=== PATIENT | female | born 1945 | race Caucasian/White ===

== ENCOUNTER 2021-09-12 19:50 | Emergency (ER) | payer MEDICARE, BC ==
[~2021-09-12] VITALS: Ht 167.6 cm; Wt 83.0 kg
[2021-09-12 20:28] LABS: BASOPHILS % (AUTO) 0.4 % (0.0-5.0); EOSINOPHILS % (AUTO) 1.9 % (0.0-8.0); HEMATOCRIT 39.6 % (36-48); LYMPHOCYTES % (AUTO) 26.9 % (21.0-51.0); MEAN CORPUSCULAR HGB CONC 34.3 g/dL (32.0-36.0); MEAN CORPUSCULAR VOLUME 93.2 fL (79-99); MONOCYTES % (AUTO) 7.4 % (3.0-13.0); NEUTROPHILS % (AUTO) 63.2 % (40.0-77.0); PLATELET COUNT (AUTO) 324 K/uL (130-400); RED BLOOD CELL COUNT(AUTO) 4.25 MIL/uL (4.00-5.50); RED CELL DISTRIBUTION WIDTH 11.5 % (11.0-15.5); WHITE BLOOD COUNT (AUTO) 8.1 K/uL (4.8-10.8)
[2021-09-12] MEDS ORDERED: LORAZEPAM 2 MG/ML 1 ML VIAL IVP SCH (20:30)
[2021-09-12] MEDS ORDERED: LORAZEPAM 2 MG/ML 1 ML VIAL ONE (20:32)
[2021-09-12 20:48] LABS: POTASSIUM 3.8 mmol/L (3.5-5.1)
[2021-09-12 21:18] LABS: ALBUMIN 3.8 g/dL (3.5-5.0); CREATININE 0.5 mg/dL (0.5-1.5)
[2021-09-12 21:38] VITALS: BP 113/85
[2021-09-12] MEDS ORDERED: HYDR25CA PO (22:07)
[2021-09-12] MEDS ORDERED: LORAZEPAM 2 MG/ML 1 ML VIAL IVP ONE (22:30)
== END 2021-09-12 22:25 | disposition home or self-care (01) ==
LOC: EDH 19:50
DX: F41.9 Anxiety disorder, unspecified (principal); G20 Parkinson's disease; Z88.5 Allergy status to narcotic agent; Z79.899 Other long term (current) drug therapy; Z88.6 Allergy status to analgesic agent
CPT/HCPCS: 36415; 71045; 80053; 84484; 85025; 93005; 96374; 96376; 99285; J2060 ×2

== ENCOUNTER 2021-09-15 03:46 | Emergency (ER) | payer MEDICARE ==
[~2021-09-15] VITALS: Ht 167.6 cm; Wt 81.6 kg
[~2021-09-15 03:46] MED LIST: HYDR25CA PO
[2021-09-15 04:05] VITALS: BP 183/92
[2021-09-15] MEDS ORDERED: LORAZEPAM 2 MG/ML 1 ML VIAL ONE (04:16)
[2021-09-15] MEDS ORDERED: LORAZEPAM 2 MG/ML 1 ML VIAL IM ONE (04:30)
[2021-09-16] MEDS ORDERED: CEPH500B PO (15:29)
[2021-09-16] MEDS ORDERED: HYDR-3421 PO (15:29)
== END 2021-09-15 05:00 | disposition home or self-care (01) ==
LOC: EDH 03:46
DX: F41.9 Anxiety disorder, unspecified (principal); R25.9 Unspecified abnormal involuntary movements; Z88.5 Allergy status to narcotic agent; Z85.820 Personal history of malignant melanoma of skin; Z79.899 Other long term (current) drug therapy
CPT/HCPCS: 96372; 99283; J2060

== ENCOUNTER 2021-09-16 13:43 | Emergency (ER) | payer MEDICARE ==
[~2021-09-16] VITALS: Ht 167.6 cm; Wt 81.6 kg
[2021-09-16 14:28] LABS: BASOPHILS % (AUTO) 0.5 % (0.0-5.0); EOSINOPHILS % (AUTO) 2.4 % (0.0-8.0); HEMATOCRIT 37.4 % (36-48); LYMPHOCYTES % (AUTO) 24.8 % (21.0-51.0); MEAN CORPUSCULAR HEMOGLOBIN 32.2 pg (27.0-33.0); MEAN CORPUSCULAR HGB CONC 34.2 g/dL (32.0-36.0); MONOCYTES % (AUTO) 10.8 % (3.0-13.0); PLATELET COUNT (AUTO) 304 K/uL (130-400); RED BLOOD CELL COUNT(AUTO) 3.98 MIL/uL (4.00-5.50); RED CELL DISTRIBUTION WIDTH 11.7 % (11.0-15.5); WHITE BLOOD COUNT (AUTO) 6.3 K/uL (4.8-10.8)
[2021-09-16] MEDS ORDERED: LORAZEPAM 2 MG/ML 1 ML VIAL IVP ONE (14:30)
[2021-09-16] MEDS ORDERED: LORAZEPAM 2 MG/ML 1 ML VIAL ONE (14:35)
[2021-09-16 14:38] LABS: CREATININE 0.6 mg/dL (0.5-1.5); POTASSIUM 3.4 mmol/L (3.5-5.1)
[2021-09-16 14:42] LABS: APPEARANCE,URINE CLOUDY (CLEAR); BILIRUBIN,URINE NEGATIVE (NEGATIVE); COLOR,URINE YELLOW (YELLOW); GLUCOSE, URINE (UA) NEGATIVE (NEGATIVE); KETONES,URINE 15 mg/dL (NEGATIVE); LEUKOCYTE ESTERASE ,URINE LARGE (NEGATIVE); NITRATE,URINE NEGATIVE (NEGATIVE); OCCULT BLOOD,URINE NEGATIVE (NEGATIVE); PH,URINE 7.5 (5.0-8.0); PROTEIN,URINE NEGATIVE (NEGATIVE); UROBILINOGEN,URINE 0.2 mg/dL (0.2-1.0)
[2021-09-16 14:43] LABS: ALBUMIN 3.4 g/dL (3.5-5.0); BILIRUBIN,TOTAL 1.1 mg/dL (0.2-1.0); TOTAL PROTEIN, SERUM 6.5 g/dL (6.0-8.3)
[2021-09-16 14:53] LABS: BACTERIA,URINE Few /HPF (None Seen); WBC,URINE 26-50 /HPF (0-1)
[2021-09-16 14:54] LABS: MUCUS,URINE Rare LPF (None Seen); SQUAMOUS EPITHELIAL CELL,UR Few /HPF (0-2)
[2021-09-16] MEDS ORDERED: POTASSIUM BICARB/CIT AC 25 MEQ TABLET.EFF PO ONE (15:00)
[2021-09-16] MEDS ORDERED: CEFTRIAXONE 1G VIAL IVP ONE (15:00)
[2021-09-16] MEDS ORDERED: POTASSIUM BICARB/CIT AC 25 MEQ TABLET.EFF ONE (15:03)
[2021-09-16] MEDS ORDERED: CEFTRIAXONE 1G VIAL ONE (15:03)
[2021-09-16 15:10] VITALS: BP 143/91
[2021-09-16] MEDS ORDERED: CEPH500B PO (15:29)
[2021-09-16] MEDS ORDERED: HYDR-3421 PO (15:29)
== END 2021-09-16 15:45 | disposition home or self-care (01) ==
LOC: EDH 13:43
DX: N39.0 Urinary tract infection, site not specified (principal); F41.9 Anxiety disorder, unspecified; I10 Essential (primary) hypertension; G20 Parkinson's disease; Z88.6 Allergy status to analgesic agent; Z79.899 Other long term (current) drug therapy; Z85.820 Personal history of malignant melanoma of skin; Z88.5 Allergy status to narcotic agent
CPT/HCPCS: 36415; 80053; 81001; 84484; 85025; 87077; 87088; 87186; 93005; 96374; 96375; 99284; J0696; J2060